=== PATIENT | female | born 1950 | race Caucasian/White ===

== ENCOUNTER 2023-09-06 06:19 | Day surgery (SDC) | payer MEDICARE, OTHER, SELFPAY ==
[2023-09-06 08:43] VITALS: BMI 35.5
[2023-09-06 08:48] VITALS: BMI 35.5
[2023-09-06 08:56] VITALS: BP 163/79
[2023-09-06 10:18] VITALS: BP 141/64
[2023-09-06 10:30] VITALS: BP 142/64
[2023-09-06 10:45] VITALS: BP 145/73
== END 2023-09-06 10:59 | disposition home or self-care (01) ==
LOC: GI 06:19
PROVIDERS: ATTENDING PHYSICIAN Internal Medicine Gastroenterology
DX: K80.50 Calculus of bile duct without cholangitis or cholecystitis without obstruction (principal); Z90.49 Acquired absence of other specified parts of digestive tract
CPT/HCPCS: 43260; 74330; 76000; C1769

== ENCOUNTER 2023-09-11 19:24 | Emergency (ER) | payer MEDICARE, OTHER, SELFPAY ==
[2023-09-11 19:26] VITALS: BP 175/98; BMI 35.8
[2023-09-11 19:49] LABS: % Basophils 1.4 % (0-2); % Eosinophils 1.3 % (0-6); % Lymphocytes 16.8 % (20.5-51.1); % Neutrophils 57.5 % (42.2-75.2); Absolute Basophils 0.2 10^3/uL (0-0.2); Absolute Eosinophils 0.1 10^3/uL (0-0.7); Absolute Immature Granulocytes 1.3 10^3/uL (0-0.05); Absolute Lymphocytes 1.9 10^3/uL (1.2-3.4); Absolute Monocytes 1.2 10^3/uL (0.1-0.6); Absolute Neutrophils 6.4 10^3/uL (1.4-6.5); Hematocrit 30.9 % (37.0-47.0); Hemoglobin 10.2 g/dL (12.0-16.0); Mean Corpuscular Hgb 27.8 pg (27.0-31.0); Mean Corpuscular Volume 84.2 fL (81.0-99.0); Mean Platelet Volume 10.6 fL (7.4-10.4); Platelet Count 681 10^3/uL (130-400); Red Blood Cell Count 3.67 10^6/uL (4.20-5.40); Red Cell Dist. Width 17.6 % (11.5-14.5); White Blood Cell Count 11.1 10^3/uL (4.8-10.8)
[2023-09-11 19:59] LABS: COVID-19 Antigen Negative (Negative)
[2023-09-11 20:05] LABS: ALT (SGPT) 25 U/L (0-35); AST (SGOT) 35 U/L (14-36); Albumin 4.5 g/dl (3.5-5.0); Alkaline Phosphatase 97 U/L (38-126); Blood Urea Nitrogen 22 mg/dl (7-17); Calcium 10.3 mg/dl (8.4-10.2); Carbon Dioxide 24 mmol/L (22-30); Chloride 105 mmol/L (98-107); Estimated Creatinine Clearance 101 ml/min; Glucose 101 mg/dl (70-99); Sodium 139 mmol/L (135-145); Total Bilirubin 0.8 mg/dl (0.2-1.3); Total Protein 7.7 g/dl (6.3-8.2); eGFR > 60.00
[2023-09-11 20:10] LABS: Potassium 4.8 mmol/L (3.5-5.1)
[2023-09-11 22:00] VITALS: BP 175/71
--- NOTE | 2023-09-11 22:12 | ED.GENMED ---
History of Present Illness
<SINA Colon - Last Filed: 09/12/23 05:46>
General
Chief Complaint: Abdominal Symptoms
Source: patient
Exam Limitations: none
Time Seen by Provider: 09/11/23 22:00
Travel History
Have you had any contact with someone who has COVID-19?: No
Do you have any symptoms of coronavirus? Fever > 100 degrees, chills, cough, shortness of breath, sore throat, loss of taste or smell, muscle aches, or headache?: No
History of Present Illness
History of Present Illness:
This is a 72 yo female PMH cholecystectomy who is 5 days s/p ERCP presenting for nausea x 5 days. She states nausea started the day of the ERCP, on tuesday, and has persisted throughout the week. She mostly feels nauseated after eating meals. She
admits to associated fever and chills at home which have fluctuated throughout the week and has responded well to tylenol. She describes vomiting on the day of the ERCP, but has not vomited since then. She describes associated crampy abdominal
discomfort concentrated in the epigastric and RUQ regions.
She denies diarrhea, constipation, hematemesis, hematochezia, and pain radiating to the back.
Hx is significant for cholecystectomy in 2014, as well as a history of myelofibrosis, for which she restarted hydroxyurea on .
Denies alcohol use and quit smoking over 10 years ago.
Physical exam significant for mild RUQ and epigastric tenderness.
Review of Systems
<SINA Colon - Last Filed: 09/12/23 05:46>
Review of Systems
Allergies reviewed?: Yes
Constitutional: Reports fever and chills
EENT: Reports no symptoms
Respiratory: Reports no symptoms
Cardiac: Reports no symptoms
ABD/GI: Reports nausea
: Reports no symptoms
Neurological: Reports no symptoms
Phy Exam
<ST IsaiahSC - Last Filed: 09/12/23 05:46>
General Physical Exam
General Presentation: well appearing
General age: appears stated age
General Skin: warm and dry
General Habitus: normal and obese
General Mental: alert
General Hydration: appears well hydrated
Cardiovascular Exam
Cardiovascular Exam: regular rate/rhythm, no gallop and no murmur
Pulmonary Exam
Pulmonary Exam: lungs clear and no respiratory distress
Gastrointestinal Exam
Gastrointestinal Exam: normal bowel sounds, soft and no masses
Palpation: right upper quadrant: Moderate tenderness
Neurological Exam
Neurological Exam: alert and oriented x3
Course
<ST IsaiahSC - Last Filed: 09/12/23 05:46>
Orders/Labs/Results
Orders:
Orders
09/11/23 19:42
COVID-19 Antigen Urgent
Source: Nasal Swab
Complete Blood Count/With Diff Urgent
Comprehensive Metabolic Panel Urgent
09/11/23 22:35
US Abdomen Complete/Upper Urgent
Comment:
Reason For Exam: fever and nausea s/p ERCP
Abnormal Lab Results
09/11/23
19:42
WBC 11.1 H 10^3/uL
(4.8-10.8)
RBC 3.67 L 10^6/uL
(4.20-5.40)
Hgb 10.2 L g/dL
(12.0-16.0)
Hct 30.9 L %
(37.0-47.0)
RDW 17.6 H %
(11.5-14.5)
Plt Count 681 H 10^3/uL
(130-400)
MPV 10.6 H fL
(7.4-10.4)
Abs Immat Gran (auto) 1.3 H 10^3/uL
(0-0.05)
Absolute Monos (auto) 1.2 H 10^3/uL
(0.1-0.6)
Immature Gran % 12.0 H %
(0-0.5)
Lymphocytes % 16.8 L %
(20.5-51.1)
Monocytes % 11.0 H %
(1.7-9.3)
BUN 22 H mg/dl
(7-17)
Glucose 101 H mg/dl
(70-99)
Calcium 10.3 H mg/dl
(8.4-10.2)
09/11/23 19:42
09/11/23 19:42
Vital Signs
Initial and Last Documented VS:
Initial Vital Signs
Temp Pulse Resp BP Pulse Ox
98.1 F 96 18 175/98 99
09/11/23 19:26 09/11/23 19:26 09/11/23 19:26 09/11/23 19:26 09/11/23 19:26
Last Documented Vital Signs
Temp Pulse Resp BP Pulse Ox
98.1 F 67 23 143/70 96
09/11/23 19:26 09/11/23 23:45 09/11/23 23:45 09/12/23 02:00 09/12/23 02:15
Moraleslt;Veto Jang, - Last Filed: 09/12/23 01:56>
Orders/Labs/Results
Orders:
Orders
09/11/23 19:42
COVID-19 Antigen Urgent
Source: Nasal Swab
Complete Blood Count/With Diff Urgent
Comprehensive Metabolic Panel Urgent
09/11/23 22:35
US Abdomen Complete/Upper Urgent
Comment:
Reason For Exam: fever and nausea s/p ERCP
Abnormal Lab Results
09/11/23
19:42
WBC 11.1 H 10^3/uL
(4.8-10.8)
RBC 3.67 L 10^6/uL
(4.20-5.40)
Hgb 10.2 L g/dL
(12.0-16.0)
Hct 30.9 L %
(37.0-47.0)
RDW 17.6 H %
(11.5-14.5)
Plt Count 681 H 10^3/uL
(130-400)
MPV 10.6 H fL
(7.4-10.4)
Abs Immat Gran (auto) 1.3 H 10^3/uL
(0-0.05)
Absolute Monos (auto) 1.2 H 10^3/uL
(0.1-0.6)
Immature Gran % 12.0 H %
(0-0.5)
Lymphocytes % 16.8 L %
(20.5-51.1)
Monocytes % 11.0 H %
(1.7-9.3)
BUN 22 H mg/dl
(7-17)
Glucose 101 H mg/dl
(70-99)
Calcium 10.3 H mg/dl
(8.4-10.2)
09/11/23 19:42
09/11/23 19:42
Vital Signs
Initial and Last Documented VS:
Initial Vital Signs
Temp Pulse Resp BP Pulse Ox
98.1 F 96 18 175/98 99
09/11/23 19:26 09/11/23 19:26 09/11/23 19:26 09/11/23 19:26 09/11/23 19:26
Last Documented Vital Signs
Temp Pulse Resp BP Pulse Ox
98.1 F 67 23 143/70 96
09/11/23 19:26 09/11/23 23:45 09/11/23 23:45 09/12/23 02:00 09/12/23 02:15
<SINA Colon - Last Filed: 09/12/23 05:46>
MDM/Problems Addressed
Differential Diagnosis Includes:
Cholangitis
Choledocholithiasis
Acute Pancreatitis
MDM/Problems Addressed:
Abdominal US showed gallbladder remnant with gallstones present.
The patient is experiencing fever/chills post ERCP, with no other concerning symptoms on history and physical exam.
Patient advised to continue symptomatic management of fever/chills and to follow up if symptoms worsen.
<SINA Colon - Last Filed: 09/12/23 05:46>
*Critical Care Note
Total Time (30-74mins, 75-104mins- exclusive of procedures): Not Applicable
<Veto Jang DO - Last Filed: 09/12/23 01:56>
Update Note
Update Note:
09/12/2023 0153 AM: Discussed ultrasound findings with patient. At this point patient to be discharged with follow-up with GI. Patient currently is in no acute distress. Did offer CT scan but through shared decision making, and deferred. Patient
being discharged in stable and improved condition.
ED Attending Note
<SINA Colon - Last Filed: 09/12/23 05:46>
-
Portions of this chart may have been created with voice recognition software.� Occasional wrong word or��sound alike� substitutions may have occurred due to the inherent limitations of voice recognition software.
<Veto Jang DO - Last Filed: 09/12/23 01:56>
ED Attending Note
Patient seen and examined by attending physician: Yes
I performed the substantive portion of visit, reviewed & personally made and approve the management plan that is documented in note by myself or ADAIR.: Yes
ED Attending Note:
Pleasant 72-year-old female that presents with 'hypothermia '. She states that her temperature dropped between 95 and 96 �F today. Patient has had an ERCP on Tuesday and since then she has had some nausea and pain in the upper abdomen. Patient
also has a history of myelofibrosis and reports being treated by oncology. She had this ERCP looking for stone in her common bile duct. No stone was found and she had the procedure without any complications. States that she called GI today after
experiencing some symptoms and was told to come to the ER by Dr. Doe. Patient was seen in conjunction with the PA student. I have reviewed and agree with the history and treatment plan presented. On my independent physical exam, patient is
awake, alert, and oriented x3. Patient has absolutely no tenderness to palpation in the right upper quadrant or epigastric region of the abdomen. Skin is warm and dry. She is afebrile. Moves all 4 extremities.
Discharge Plan
Departure
Patient Disposition: Home (Routine Discharge)
Date of Disposition: 09/12/23
Time of Disposition: 01:54
Patient with high blood pressure during this ER visit?: Yes
Condition: Good
Discharge Problem:
Abdominal pain
Instructions: Abdominal Pain, BLOOD PRESSURE
Prescriptions:
No Action
multivitamin Tablet
1 tab PO DAILY
simvastatin 10 mg Tablet
10 mg PO HS
levothyroxine [L-Thyroxine] 50 mcg Tablet
50 mcg PO DAILY
triamterene-hydrochlorothiazid 37.5-25 mg Tablet
1 tab PO DAILY
omeprazole 20 mg Tablet,Delayed Release (Dr/Ec)
20 mg PO DAILY
cholecalciferol (vitamin D3) [Vitamin D3] 50 mcg (2,000 unit) Capsule
50 mcg PO DAILY
Referrals:
Valerio Caballero MD [Active] -
Enid Jang MD [Family Provider] -
Activity Restrictions/Additional Instructions:
It was a pleasure meeting you and taking part in your care. We hope for your continued healing and wellness.
Please read discharge instructions in their entirety. However, they are for general education and may not describe your exact diagnosis at discharge. Information on your ER visit and medical conditions were discussed with you along with appropriate
follow up information...
If indicated, please take your medications as instructed and indicated on discharge paperwork.
Please schedule a follow up appointment as directed. Call to schedule an appointment
Please return to the emergency department with ANY change in, persisting, or worsening of symptoms. If any of your symptoms do not improve, or persist, or become more severe within 6-12 hours, please return to the emergency department for further
care.
Please return to the emergency department if you develop a headache, neck pain/stiffness, fever greater than 100.4F, chest pain, shortness of breath, persistent nausea, vomiting, slurred speech, difficulty walking, numbness/tingling, weakness, signs
of infection or any other symptoms that are worrisome to you.
If you have any questions or concerns please do not hesitate to call the Hospital at or E-mail me directly at [email or web address]
Interventions
Interventions:
*Risk Screen - Suicide Last Done: 09/11/23 19:26
*General Assessment Last Done: 09/11/23 19:26
*Neglect/Abuse Screening Last Done: 09/11/23 22:04
ED- Fall Risk Assessment Last Done: 09/11/23 22:04
*ED COVID-19 Vaccine History Last Done: 09/11/23 19:26
*Nursing Disposition Last Done: 09/12/23 02:19
VY-Lwjhzy-Jsmogzwtnw Assessment Last Done: 09/11/23 22:04
Discharge Date and Time
Discharge Date/Time: 09/12/23 02:19
Print Language: [place]
[2023-09-11 23:00] VITALS: BP 177/69
[2023-09-12 00:35] VITALS: BP 153/63
[2023-09-12 01:00] VITALS: BP 145/64
[2023-09-12 02:00] VITALS: BP 143/70
== END 2023-09-12 02:19 | disposition home or self-care (01) ==
LOC: EMR 19:24
PROVIDERS: Emergency Medicine; EMERGENCY PHYSICIAN Student in an Organized Health Care Education/Training Program; FAMILY PHYSICIAN Internal Medicine
DX: R10.9 Unspecified abdominal pain (principal); Z87.891 Personal history of nicotine dependence
CPT/HCPCS: 99284; 76700; 80053; 85025; 87811

== ENCOUNTER 2025-02-04 06:21 | Day surgery (SDC) | payer MEDICARE, OTHER, SELFPAY | END 2025-02-04 10:47 | disposition home or self-care (01) | LOC: GI 06:21 | PROVIDERS: ATTENDING PHYSICIAN Internal Medicine Gastroenterology | DX: Z12.11 Encounter for screening for malignant neoplasm of colon (principal); K57.30 Diverticulosis of large intestine without perforation or abscess without bleeding; K64.8 Other hemorrhoids; K31.7 Polyp of stomach and duodenum; K44.9 Diaphragmatic hernia without obstruction or gangrene; D12.3 Benign neoplasm of transverse colon; Z86.0100 Personal history of colon polyps, unspecified | CPT/HCPCS: 45380; 43239; 88305 ==